=== PATIENT | male | born 2000 | race Two or more races ===

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

== ENCOUNTER 2023-11-27 03:47 | Emergency (ER) | payer OTHER, SELFPAY | END 2023-11-27 06:45 | disposition home or self-care (01) | LOC: MADERS 03:47 | DX: U07.1 COVID-19 (principal) | CPT/HCPCS: 87081; 87430; 87635; 87804; 99283 ==